=== PATIENT | female | born 1970 | race Caucasian/White ===

== ENCOUNTER → 2020-03-22 | Outpatient (CLI) | payer BC | LOC: KOH-I 08:11 | DX: M54.5 Low back pain (principal); M25.551 Pain in right hip; M25.549 Pain in joints of unspecified hand; M79.671 Pain in right foot; M79.672 Pain in left foot; M51.36 Other intervertebral disc degeneration, lumbar region; M43.17 Spondylolisthesis, lumbosacral region; M19.072 Primary osteoarthritis, left ankle and foot; M19.071 Primary osteoarthritis, right ankle and foot | CPT/HCPCS: 72100; 73130; 73502; 73630 ==

== ENCOUNTER → 2020-03-27 | Outpatient (CLI) | payer BC | LOC: KOH-I 13:04 | DX: M79.89 Other specified soft tissue disorders (principal) | CPT/HCPCS: 76881 ==

== ENCOUNTER → 2020-05-23 | Outpatient (CLI) | payer BC ==
[2020-05-23 11:57] LABS: BUN/CREATININE RATIO 20 (0-10)
[2020-05-24 08:14] LABS: RHEUMATOID ARTHRITIS FACTOR <10.0 IU/mL (0.0-13.9)
[2020-05-24 23:07] LABS: CCP ANTIBODIES IGG/IGA 5 units (0-19)
== END ==
LOC: LAB 09:44
PROVIDERS: Internal Medicine
DX: M25.50 Pain in unspecified joint (principal); Z79.1 Long term (current) use of non-steroidal anti-inflammatories (NSAID); R76.8 Other specified abnormal immunological findings in serum
CPT/HCPCS: 36415; 80053; 83520; 86200; 86431